=== PATIENT | female | born 1950 | race African-American/Black ===

== ENCOUNTER → 2020-04-22 | Outpatient (CLI) | payer OTHER ==
--- NOTE | 2020-04-22 10:24 | KCIC ---
Bilateral digital screening mammograms: Reason for examination: Routine screening. Comparison is made to previous study dated Interpretation is made with the benefit of CAD. The skin and nipples show no abnormalities. No abnormal lymph nodes are seen. The breast parenchyma is predominantly fatty. (Breast density: Category A.) There does appear to be some nodularity in the subareolar 9:00 position. This may represent ductal ectasia but further evaluation with ultrasound is recommended. There are no other dominant masses, suspicious calcifications or architectural distortions. Couple benign calcifications are seen. Impression: Small nodular density in the subareolar 9:00 position of the right breast. Recommend further evaluation with ultrasound. BI-RADS Category 0: Incomplete. Needs additional imaging evaluation. "Our facility is accredited by the [employer]amm[employer]." This patient's information has been entered into a reminder system for the patient to be notified with the results of her examination and a target date for the next mammogram. Electronically signed by: Wilda Baum MD (04/22/2020 10:21 AM) [id number]
--- NOTE | 2020-04-22 16:08 | KCIC ---
BONE DENSITY AXIAL History: Reason: POST MENOPAUSAL / Spl. Instructions: / History: TECHNIQUE: Dual energy x-ray absorptiometry of the lumbar spine and both hips was performed. T-score of average bone mineral density based was calculated based on standard deviations above or below the expected young adult normal value. Diagnostic definitions were established by the World [employer] Organization. FINDINGS: The average bone mineral density associated with L1-L4 is 0.903 g/cm^2, corresponding with a T-score of -1.3. The average total bone mineral density associated with left hip is 0.660 g/cm^2, corresponding with a T-score of -2.3. No comparison examinations are available. Refer to the worksheets for full detail. IMPRESSION: 1. Osteopenia. Average bone mineral density yields a T-score between -1.0 and -2.5. Fracture risk is increased. Electronically signed by: Hakan Keller DO (04/22/2020 4:05 PM) [id number]
== END ==
LOC: KCIC DEXA 08:50
PROVIDERS: ATTEND Physician Assistant Medical
DX: Z12.31 Encounter for screening mammogram for malignant neoplasm of breast (principal); Z13.820 Encounter for screening for osteoporosis; N63.41 Unspecified lump in right breast, subareolar; M85.80 Other specified disorders of bone density and structure, unspecified site; Z78.0 Asymptomatic menopausal state
CPT/HCPCS: 77067; 77080

== ENCOUNTER → 2020-05-01 | Outpatient (CLI) | payer OTHER ==
--- NOTE | 2020-05-01 17:13 | KCIC ---
Right breast ultrasound: Reason for examination: Nodular density on screening mammogram. Comparison is made to mammographic exam dated 04/22/2020. Ultrasound examination of the right breast was performed in the area of mammographic concern in the axilla. There is cystic ductal ectasia in the retroareolar 9:00 position which accounts for the nodule seen on mammographic exam. No other cystic or solid lesions are seen. No abnormal appearing lymph nodes are seen in the axilla. 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 No suspicious abnormalities are seen. Recommend routine mammographic follow-up. BI-RADS Category 2: Benign. "Our facility is accredited by the [employer]." This patient's information has been entered into a reminder system for the patient to be notified with the results of her examination and a target date for the next mammogram. Electronically signed by: Wilda Baum MD (05/01/2020 5:10 PM) [id number]
== END ==
LOC: KCIC US 12:41
PROVIDERS: ATTEND Family Medicine
DX: N60.41 Mammary duct ectasia of right breast (principal)
CPT/HCPCS: 76641

== ENCOUNTER → 2020-07-12 | Outpatient (CLI) | payer OTHER ==
--- NOTE | 2020-07-12 17:33 | KCIC ---
XR CERVICAL SPINE 4-5V History: Reason: NECK PAIN SINCE MAR 2020, LROM, NO INJURY / Spl. Instructions: / History: Technique: 5 views cervical spine. Comparison: None. Findings: Grade 1 anterolisthesis C4 on C5. Mild retrolisthesis C5 on C6. Advanced multilevel degenerative disc changes most prominent C5-C6. No acute fracture. Prevertebral soft tissues unremarkable. Multilevel bony neuroforaminal narrowing. Advanced facet arthropathy. Vascular calcific effusions. Normal alignm ent C1 on C2. Impression: 1. Advanced multilevel cervical spondylosis. 2. Grade 1 anterolisthesis C4 on C5. 3. Mild retrolisthesis C5 on C6. Electronically signed by: Hakan Keller DO (07/12/2020 5:30 PM) [id number]
== END ==
LOC: KCIC 12:29
PROVIDERS: ATTEND Physician Assistant Medical
DX: M47.812 Spondylosis without myelopathy or radiculopathy, cervical region (principal); M43.12 Spondylolisthesis, cervical region
CPT/HCPCS: 72050

== ENCOUNTER → 2020-12-03 | Outpatient (CLI) | payer OTHER ==
--- NOTE | 2020-12-03 13:44 | KCIC ---
Noncontrast CT scan of the chest for night sweats, productive cough, smoking, cough for about 8 month s. TECHNIQUE: Contiguous axial CT images are obtained through the chest. No IV contrast was administered . Sagittal and coronal reformations are evaluated. FINDINGS: Emphysematous changes at the apices primarily. Some mild pleural parenchymal scarring at th e right lung base is noted. Peripherally in the right lower lobe, seen on axial series #6, image 40, is an 8 mm but stable subpleural solid nodule with a parenchymal tail, immediately adjacent to the se cond similar-appearing 5 mm nodule seen posteriorly on the same image. These nodules are nonspecific but have the appearance favors an infectious or inflammatory etiology. Nevertheless, given the patien t's high risk history, follow-up [address] scan is recommended. There are bulky aortic calcification s, and there is mild multifocal coronary artery calcification. No suspicious mediastinal, hilar, or a xillary lymphadenopathy is seen. No gross abnormalities of the upper abdominal organs, though evaluat ion is limited by lack of IV contrast. No significant osteoblastic or osteolytic bone lesions. IMPRESSION: 1. Tandem subpleural nodules in the right lower lobe, less than 1 cm, with appearance most suggestive of benign infectious or inflammatory causes, however given this patient's high risk history, underly ing neoplasm cannot be excluded and follow-up CT scan in 3 months is recommended. 2. Atherosclerosis and coronary artery calcifications. 3. COPD. PQRS Compliance Statement: One or more of the following individualized dose reduction techniques were utilized for this examinat ion: 1. Automated exposure control 2. Adjustment of the mA and/or kV according to patient size 3. Use of iterative reconstruction technique Electronically signed by: Valente Abad MD (12/03/2020 12:57 PM) [id number]
== END ==
LOC: KCIC CT 09:10
PROVIDERS: ATTEND Physician Assistant Medical
DX: J43.9 Emphysema, unspecified (principal); R91.8 Other nonspecific abnormal finding of lung field; R61 Generalized hyperhidrosis; I25.10 Atherosclerotic heart disease of native coronary artery without angina pectoris; J98.4 Other disorders of lung; F17.210 Nicotine dependence, cigarettes, uncomplicated
CPT/HCPCS: 71250

== ENCOUNTER → 2021-03-12 | Outpatient (CLI) | payer OTHER ==
--- NOTE | 2021-03-13 10:08 | KCIC ---
PQRS Compliance Statement: One or more of the following individualized dose reduction techniques were utilized for this examinat ion: 1. Automated exposure control 2. Adjustment of the mA and/or kV according to patient size 3. Use of iterative reconstruction technique CT THORAX WO 03/12/2021 2:26 PM Indication: Smoker, pulmonary nodule COMPARISON: 12/03/2020 CT chest TECHNIQUE: Multiple axial CT images of the chest were obtained without intravenous contrast. Coronal and sagittal reformats are provided. FINDINGS: There is biapical pleural parenchymal scarring with interval increase in size of nodular consolidativ e change at the right lung apex (series 6, image 32 and 33). At the left lung apex there is a 5 mm so lid noncalcified pulmonary nodule which is more conspicuous as compared to prior examination. There i s mild centrilobular pulmonary emphysema. There is a 3 mm subpleural solid noncalcified pulmonary nod ule in the lateral right upper lobe (series 6, image 88), stable. Along the subpleural right lower lo be there is nodular consolidative change measuring 1.2 cm, stable. There is bibasilar subsegmental at electasis. No pleural effusions, pulmonary vascular congestion or pneumothorax. Visualized portions o f the upper abdomen appear normal within the limitations of noncontrast examination. No suspicious os seous abnormality is identified. IMPRESSION: There is marginal increase in size of a solid noncalcified pulmonary nodule at the left lung apex samantha suring 5 mm. 3 month follow-up chest CT is recommended to assess stability. This may be too small to assess by PET/CT. There is increased consolidative change at the right lung apex which may represent progressive fibrot ic changes. Attention on follow-up imaging could be of benefit. Differential considerations would inc lude superimposed pneumonia or underlying neoplastic process. Electronically signed by: Toya Orta MD (03/13/2021 10:05 AM) [id number]
== END ==
LOC: KCIC CT 14:24
PROVIDERS: ATTEND Family Medicine
DX: Z12.2 Encounter for screening for malignant neoplasm of respiratory organs (principal); R91.8 Other nonspecific abnormal finding of lung field; J43.2 Centrilobular emphysema; J98.11 Atelectasis; F17.210 Nicotine dependence, cigarettes, uncomplicated; J98.4 Other disorders of lung
CPT/HCPCS: 71250

== ENCOUNTER → 2021-06-11 | Outpatient (CLI) | payer OTHER ==
--- NOTE | 2021-06-11 17:07 | KCIC ---
EXAM: Chest CT without intravenous contrast. HISTORY: Pulmonary nodule follow-up. TECHNIQUE: Computed tomographic images of the chest were obtained without contrast. Multiplanar refor matting was performed. *One or more of the following individualized dose reduction techniques were utilized for this examina tion: 1. Automated exposure control. 2. Adjustment of the mA and/or kV according to patient size. 3. Use of iterative reconstruction technique. COMPARISON: 03/12/2021 and 12/01/2020. FINDINGS: The heart is normal in size. There is calcified atherosclerotic plaque involving the prakash ry arteries. There is an ectatic ascending aorta measuring 3.8 cm. No pathologically enlarged mediast inal or hilar lymph node is seen. There is no pneumothorax or pleural effusion. There is apical predo minant emphysema with subpleural bleb formation and pleural parenchymal scarring. There is a 5 mm nodule at the left lung apex which is stable in appearance. There are adjacent 10 mm and 8 mm nodules abutting the pleura of the lateral right lower lobe, stable in appearance. There are few additional tiny benign pleural based nodular opacities within the bilateral lateral mid thorax. There is a 6 mm nodule with component of internal cavitation within the left upper lobe, stable in ap pearance. There is right greater than left infrahilar pleural parenchymal scarring. There is a stable 10 mm hypodense lesion within the liver, difficult to characterize in the absence o f contrast. There is gastric wall thickening likely due to relative under distention. There is no con vincing acute finding involving the upper abdomen. There is chronic deformity of the right fifth rib. There is thoracic kyphosis and degenerative change throughout the thoracic spine. IMPRESSION: 1. Multiple pulmonary nodules, the largest of which is a 10 mm pleural-based nodule within the latera l right lower lobe. These nodules are stable compared to the prior studies. Continued short-term foll ow-up at three-month intervals is recommended to confirm longer-term stability. The largest nodule ma y be within limits in size for assessment with PET/CT; however, the location of this nodule favors be nignity. 2. Emphysema with apical and infrahilar pleural proximal scarring. 3. Tiny hypodense lesion within the liver. In the absence of known malignancy, this likely a cyst or hemangioma. 4. Stable ectatic ascending aorta measuring 3.8 cm. Electronically signed by: Johanne Willams MD (06/11/2021 5:04 PM) [id number]
== END ==
LOC: KCIC CT 13:28
PROVIDERS: ATTEND Family Medicine
DX: R91.8 Other nonspecific abnormal finding of lung field (principal); J43.9 Emphysema, unspecified; K76.89 Other specified diseases of liver; I77.819 Aortic ectasia, unspecified site; I25.10 Atherosclerotic heart disease of native coronary artery without angina pectoris; M95.4 Acquired deformity of chest and rib; F17.210 Nicotine dependence, cigarettes, uncomplicated
CPT/HCPCS: 71250

== ENCOUNTER → 2021-09-15 | Outpatient (CLI) | payer MEDICARE ==
--- NOTE | 2021-09-15 15:58 | KCIC ---
EXAMINATION: XR CHEST 2V CLINICAL HISTORY: COUGH X'S 3 WEEKS, HX OF PRIMARY TB AGE 14. EXAM DATE/TIME: 09/15/2021 11:13 AM COMPARISON: None FINDINGS: Lines, Tubes, and Devices: None. Cardiomediastinal Silhouette: Normal heart size. Aortic atherosclerotic calcification. Lungs and Pleura: Right basilar pleural thickening/scarring. Bibasilar subsegmental atelectasis and/o r scarring. Mild coarse interstitial prominence, likely chronic. No evidence of pleural effusion or p neumothorax. Bones and Soft Tissues: Degenerative changes in the thoracic spine. Chronic right fifth rib deformity . IMPRESSION: No definitive evidence of acute cardiopulmonary abnormality. Electronically signed by: Khanh Nichols DO (09/15/2021 3:55 PM) [id number]
== END ==
LOC: KCIC 11:05
PROVIDERS: ATTEND Physician Assistant Medical
DX: I70.0 Atherosclerosis of aorta (principal); R05.3 Chronic cough; M95.4 Acquired deformity of chest and rib; M47.814 Spondylosis without myelopathy or radiculopathy, thoracic region; Z86.11 Personal history of tuberculosis
CPT/HCPCS: 71046